=== PATIENT | male | born 1970 | race Caucasian/White ===

== ENCOUNTER 2023-07-17 13:02 | Outpatient (REF) | payer OTHER, SELFPAY ==
--- NOTE | ~2023-07-17 | XR_ITS ---
EXAMINATION: XR LUMBOSACRAL SPINE WITH OBLIQUES CLINICAL INFORMATION: Dorsalgia. COMPARISON: None available. TECHNIQUE: AP and lateral neutral radiographs with flexion and extension views. FINDINGS: Status post disc spacer at L5-S1. Mild degenerative changes are present with predominantly endplate findings. Disc spaces are relatively well preserved. With flexion and extension, no significant subluxations are seen. No bony destructive lesions or fractures. XR/XR lumbar spine 4V min IMPRESSION: Mild degenerative changes with disc spacer at L5-S1.
== END 2023-07-17 13:03 | disposition home or self-care (01) ==
LOC: HO.HOSX 13:02
PROVIDERS: PCP Family Medicine; Visit Provider Physician Assistant
DX: M54.9 Dorsalgia, unspecified (principal); M54.16 Radiculopathy, lumbar region
CPT/HCPCS: 72110

== ENCOUNTER 2023-07-17 13:02 | Outpatient (AMB) | payer OTHER, SELFPAY ==
--- NOTE | 2023-07-17 13:35 | HO.SPINEOV ---
Intake Intake Visit Reasons: lower back pain & numbness both legs Intake Note: Mr. Ptael is here today c/o low back pain with numbness both legs. MRI done @ [facility]/brought disc. 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 He had surgery with Dr. Zacarias at [facility] in 2017, L5-S1 posterior lumbar interbody fusion. He tells me that he did fairly well from that surgery. He did ultimately have some posterior instrumentation removed those giving him back pain but overall was happy and pleased. Sometime about a year ago, he noticed a cramping sensation that was very similar to what he had before his 1st surgery. Specifically back pain radiating down into his legs with bilateral right greater than left leg pain numbness. He describes the sensation as being very uncomfortable, at times it will feel like his foot is going to explode so he will have to untie his boots. It is aggravated with standing and walking and does get better if he sits down. However, if he sits for too long it can become irritated and he will get the symptoms. From the moment he gets up in the morning he has the back pain and gradually as the morning goes on the leg pain will come on. Describes that his all encompassing of the legs. He was very active playing hockey and had to give this up because it was giving him significant aggravation of the symptoms. At this point he is now just trying to get through the days as the symptoms have gotten significantly worse over the last 6 months. Underwent injections at [facility] with Dr. Martin. These were TFE on the left at L4 and he did have an excellent response to these. Unfortunately the effect was short-lived. He underwent physical therapy. He is currently living day today taking Motrin 3 times a day in order to treat the pain. It does help but does not take it away. He saw Dr. Zacarias who told him that the imaging he had done at [facility] did not quite match up with his symptoms and at this time she was not going to offer him surgery. He is here for 2nd opinion. PMH: History of hypertension, asthma, hiatal hernia, depression, fatty liver disease, back surgery in 2017. Denies any heart attacks, strokes, kidney disorders, bleeding disorders or abdominal surgeries. Social hx: He quit smoking a few years back. He quit drinking in 2008. He was a heavy drinker up until that point. Does not use any recreational drugs. Medications: Ibuprofen, oxcarbazepine, Advair, quetiapine, losartan, omeprazole Allergies: Codeine makes him pass out Physical exam: He is awake alert oriented no acute distress, he has full strength of bilateral lower extremities with normal reflexes. Gait is normal. Imaging review: Lumbar MRI done at [facility] shows postsurgical changes at L5-S1 with evidence of solid interbody fusion. There is evidence of previous pedicle screw placement and these have been removed. At L4-5 there is moderate left L4 foraminal stenosis. There is no stenosis in the right L4 foramen. There is no central canal stenosis at any level of the spine. Flexion-extension x-rays here in the office today do not show any evidence of instability. Impression: A 53-year-old male with previous L5-S1 posterior lumbar interbody fusion by Dr. Bellamy 2016 who has developed progressive back pain going into both of his legs diffusely with severe pain in his feet, right greater than left. He saw Dr. Zacarias who did not feel as though the MRI matched up with his symptoms and was not willing to offer any surgery. I reviewed his history, his operative records as well as the MRI done at [facility]. I agree with Dr. Zacarias in that there is only moderate stenosis on the left at L4, not severe as suggested by the radiology report. Also on the right at L4 I do not see any evidence of compression of the nerve at all, there is a fat pad around the nerve suggesting that it is open foramen. He did have a response to the L4 injection on the left suggesting that may be part of his pain. I do not understand why he has pain in both legs. I sent him for flexion-extension x-rays and I do not see any signs of instability suggesting a mobile segment. I think it is worth getting an EMG to see if this is some kind of peripheral neuropathy that we are dealing with. I will coordinate the EMG and see him back in the office after that. I will review his case with Dr. Cortes to see if he has any other thoughts. Thank you for allowing us to care for your patient. The total time spent with this visit with this patient was 45 minutes reviewing history, physical exam, lumbar imaging review, and implementation of treatment plan or further diagnostic testing Chetan Cortes MD,PhD [facility] [place] Outpatient consult Orders: Orders NE electromyogram (EMG) Today M54.16 - Radiculopathy, lumbar region, M54.9 - Dorsalgia, unspecified XR lumbar spine 4V min Today M54.9 - Dorsalgia, unspecified Coding Level of Care Code New Pt Level 4 (14965) Diagnoses Back pain M54.9 Lumbar radiculopathy M54.16
== END 2023-07-17 15:00 | disposition home or self-care (01) ==
PROVIDERS: PCP Family Medicine; Visit Provider Physician Assistant
DX: M54.9 Dorsalgia, unspecified (principal); M54.16 Radiculopathy, lumbar region
CPT/HCPCS: 99204

== ENCOUNTER 2023-08-22 15:18 | Outpatient (REF) | payer OTHER, SELFPAY ==
--- NOTE | 2023-08-22 15:20 | EMG_ITS ---
Chief complaint: History of surgery with Dr. Chang at [facility] in 2017, L5-S1 posterior lumbar interbody fusion. Then hardware removal 2019. Develop right leg pain and numbness 1 year after, soon followed by same symptoms on the left. Continues to have back pain. Reason for referral: Evaluate for radiculopathy versus neuropathy Referred by: Chetan CORBETT Procedure done: Bilateral lower extremity NCS/EMG Precautions and/or limitations: None The limb temperature was monitored continuously and remained between 32-36 degrees C during the performance of the NCS. Nerve Conduction Studies Anti Sensory Summary Table ?Stim Site NR Onset (ms) Norm Onset (ms) Peak (ms) Norm Peak (ms) O-P Amp (?V) Norm O-P Amp Site1 Site2 Delta-0 (ms) Dist (cm) Shine (m/s) Norm Shine (m/s) Left Sural Anti Sensory (Lat Mall) Calf ? 2.9 3.7 <4.0 6.0 >5.0 Right Sural Anti Sensory (Lat Mall) Calf ? 2.5 3.6 <4.0 16.2 >5.0 Motor Summary Table ?Stim Site NR Onset (ms) Norm Onset (ms) O-P Amp (mV) Norm O-P Amp iAmp (mV) Amp (1st) (%) Site1 Site2 Delta-0 (ms) Dist (cm) Shine (m/s) Norm Shine (m/s) Left Peroneal Motor (Ext Dig Brev) Ankle ? 4.8 <4.0 5.2 >2.5 6.9 100.0 Ankle Ext Dig Brev 4.8 0.0 B Fib ? 13.1 4.0 5.3 76.9 B Fib Ankle 8.3 37.0 45 >40 Poplt ? 13.9 4.3 5.7 82.7 Poplt B Fib 0.8 6.0 75 >40 Right Peroneal Motor (Ext Dig Brev) Ankle ? 4.3 <4.0 9.8 >2.5 12.6 100.0 Ankle Ext Dig Brev 4.3 0.0 B Fib ? 12.7 7.7 9.7 78.6 B Fib Ankle 8.4 40.0 48 >40 Poplt ? 13.2 7.7 9.7 78.6 Poplt B Fib 0.5 3.5 70 >40 Left Tibial Motor (Abd Sousa Brev) Ankle ? 3.6 <5 10.6 >2.5 13.5 100.0 Ankle Abd Sousa Brev 3.6 0.0 Knee ? 13.3 6.9 8.7 65.1 Knee Ankle 9.7 44.0 45 >40 Right Tibial Motor (Abd Sousa Brev) Ankle ? 3.9 <5 10.8 >2.5 13.1 100.0 Ankle Abd Sousa Brev 3.9 0.0 Knee ? 12.0 1.8 2.2 16.7 Knee Ankle 8.1 45.0 56 >40 H Reflex Studies ?NR H-Lat (ms) L-R H-Lat (ms) L-R Lat Norm Left Tibial (Gastroc) ? 16.09 1.72 <2.0 Right Tibial (Gastroc) ? 17.81 1.72 <2.0 EMG ?Side Muscle Nerve Root Ins Act Fibs Psw Amp Dur Poly Recrt Int Pat Comment Right AbdHallucis MedPlantar S1-2 Nml Nml Nml Nml Nml 0 Nml Complete Right AntTibialis Dp Br Peron L4-5 Nml Nml Nml Nml Nml 0 Nml Complete Right PostTibialis Tibial L5, S1 Nml Nml Nml Nml Nml 1+ Nml Complete Right MedGastroc Tibial S1-2 Incr 1+ 1+ Incr Incr 0 Nml Complete Right VastusMed Femoral L2-4 Nml Nml Nml Nml Nml 0 Nml Complete Left AbdHallucis MedPlantar S1-2 Nml Nml Nml Nml Nml 0 Nml Complete Left AntTibialis Dp Br Peron L4-5 Nml Nml Nml Nml Nml 0 Nml Complete Left PostTibialis Tibial L5, S1 Incr 1+ 1+ Nml Nml 0 Nml Complete Left MedGastroc Tibial S1-2 Incr 1+ 1+ Nml Nml 0 Nml Complete Left VastusMed Femoral L2-4 Nml Nml Nml Nml Nml 0 Nml Complete FINDINGS: Right peroneal nerve showed prolonged distal latency, normal amplitude and normal conduction velocity. Right tibial nerve showed prolonged distal latency, drop in proximal amplitude and normal conduction velocity. All other nerves tested were within normal. H reflexes were symmetric. Concentric needle EMG was performed in selected muscles of the bilateral lower extremity. Study revealed signs of electric abnormalities as shown in the table below. Right medial gastrocnemius showed increased insertional activity, PSWs, fibrillations, and increased duration and amplitude. Right posterior tibialis showed polyphasia. Left medial gastrocnemius showed increased insertional activity, PSWs and fibrillations. Left posterior tibialis showed increased insertional activity, PSWs and fibrillations. IMPRESSION: 1. This is an abnormal study. 2. There is electrodiagnostic findings suggestive of bilateral L5-S1 radiculopathy. Acute on chronic features on the right side. Acute features on the left side.. 3. There is no electrodiagnostic evidence for peroneal neuropathy, tibial neuropathy. lumbosacral plexopathy, or peripheral neuropathy. CLINICAL COMMENT: Further clinical correlation recommended. Thank you for your kind referral. Shaunna Sheriff MD, VALE Board Certified, [place] [employer] and Rehabilitation (ABPMR) Board Certified, [place] Board of Electrodiagnostic Medicine (ABEM) CODIN 22895 x 2 MTDD
== END 2023-08-22 15:19 | disposition home or self-care (01) ==
LOC: HO.NEURO 15:18
PROVIDERS: Visit Provider Physician Assistant
DX: M54.9 Dorsalgia, unspecified (principal); M54.16 Radiculopathy, lumbar region
CPT/HCPCS: 95886; 95910

== ENCOUNTER → 2023-08-22 15:20 | Outpatient (BNV) | payer OTHER, SELFPAY | PROVIDERS: Visit Provider Physical Medicine & Rehabilitation | DX: M79.605 Pain in left leg (principal); M79.604 Pain in right leg; M54.16 Radiculopathy, lumbar region; R20.2 Paresthesia of skin | CPT/HCPCS: 95886; 95910 ==

== ENCOUNTER 2023-08-29 15:18 | Outpatient (AMB) | payer OTHER, SELFPAY ==
--- NOTE | 2023-08-29 15:25 | HO.SPINEOV ---
Intake Intake Visit Reasons: EMG f/u Intake Note: Mr. Patel is here today for EMG F/u. Senior Sourcing Manager Required: No Allergies codeine [CODEINE] Allergy (Severe, Verified 07/17/23 13:37) Fainting Assessment & Plan Assessment & Plan (1) Lumbar radiculopathy: Code(s): M54.16 - Radiculopathy, lumbar region Plan Mr Patel is here in follow up, I reviewed his EMG and it shows that he has acute on chronic nerve changes without any obvious compression seen on his MRI. Unfortunately this does not lend itself to any kind of surgery and sounds more like a post-laminectomy syndrome for which I do not know if there is no surgical option. We discussed the possibility of a spinal cord stimulator. He is hesitant at this point but will call me if he changes his mind. Total amount of time spent in this visit was 20 minutes in discussion of symptoms, EMG results and subsequent plan of care Chetan Cortes MD,PhD [facility] Coding Level of Care Code Est Pt Level 3 (22787) Diagnoses Lumbar radiculopathy M54.16
== END 2023-08-29 15:39 | disposition home or self-care (01) ==
PROVIDERS: PCP Family Medicine; Visit Provider Physician Assistant
DX: M54.16 Radiculopathy, lumbar region (principal)
CPT/HCPCS: 99213

== ENCOUNTER → 2023-08-29 15:18 | Outpatient (BNVA) | payer OTHER, SELFPAY | PROVIDERS: PCP Family Medicine; Visit Provider Physician Assistant ==